=== PATIENT | female | born 1960 | race Caucasian/White ===

== ENCOUNTER 2016-06-14 15:47 | Emergency (ER) | payer OTHER ==
[~2016-06-14] VITALS: Ht 162.6 cm; Wt 100.0 kg
[2016-06-14 15:58] VITALS: BP 148/83; PULSE 103; RESP 18; O2SAT 87
[2016-06-14 17:19] LABS: BASOPHILS % (AUTO) 0.4 % (0-3); EOSINOPHILS % (AUTO) 2.2 % (0-5); Mean Corpuscular Volume 100.9 fL (81-100); NEUTROPHILS % (AUTO) 66.4 % (40-74); Platelet Count 347 bil/L (150-400)
[2016-06-14 17:28] VITALS: BP_SYST 119; BP_SYST 153; BP_DIAS 68; BP_DIAS 78; PULSE 64; PULSE 67; RESP 20; O2SAT 97; O2SAT 98
[2016-06-14 17:51] LABS: TROPONIN T < 0.010 ug/L (0.0-0.011)
--- NOTE | 2016-06-14 18:07 | DRSVH ---
PROCEDURE: X-RAY CHEST ONE VIEW, PORTABLE ([id number]) INDICATIONS: dyspnea TECHNIQUE: One view of the chest was acquired. COMPARISON: [facility], , CHEST 2VW, 06/09/2014, 14:12. FINDINGS: Surgical changes and devices: None. Lungs and pleura: No pleural effusions or pneumothorax. There is mild appearance of coarsened, bibas ilar interstitium, left greater than right. Mediastinum: Mediastinal contours appear normal. Heart size is normal. Bones and chest wall: No suspicious bony lesions. Overlying soft tissues appear unremarkable. IMPRESSION: Mild appearance of coarse and IVs were interstitium as above. This could represent develo ping airspace disease such as pneumonia. Dictated by: Hoa Zapien M.D. on 06/14/2016 at 18:05 Approved by: Hoa Zapien M.D. on 06/14/2016 at 18:06
--- NOTE | 2016-06-14 18:51 | ED.REPORT ---
HPI-URI / Cough / Cold Date of Service Jun 14, 2016 ED Provider: John Lou MD History of Present Illness: Sent from Urgent Care This is a 56 year old female with a history of asthma who is an every-day smoker presenting to the emergency department from urgent care complaining of cough that began one week ago. Associated symptoms include dyspnea, sinus pressure, chills, and wheezing. She denies abdominal pain, nausea, vomiting, diarrhea, constipation, dysuria, change LOC, dizziness or lightheadedness at this time. Pt was hypoxic on room air at urgent care and consequently sent to the ED. Nursing Notes Stated Complaint: COLD SYPMTOMS, SENT FROM URGENT CARE Chief Complaint: FLU/Cold Symptoms Nursing Notes Reviewed: Yes ([employer]!, [employer] not reconciled) Allergies: Coded Allergies: No Known Allergies (Verified , 06/14/16) Scheduled Azithromycin (Zithromax) 250 Mg Tablet 250 MG PO DAILY Take 250mg once a day starting Thursday 06/15 for four more days to complete a 5 day course Prednisone (PredniSONE) 20 Mg Tablet 60 MG PO DAILY Scheduled PRN Albuterol HFA (Proair HFA) 8.5 Gm Hfa.aer.ad 2 PUFFS INHALATION Q4H PRN PRN For Shortness of Breath General Time Seen by MD: 18:50 Chief Complaint Other Hx Obtained From: Patient Arrived By: Walk-in Onset Occurred: Yesterday Symptom Duration: Since onset Severity: Current: No pain currently Pertinent Negative: Pt denies other symptoms Recent Healthcare: No recent doctor visit, No recent hospitalization Similar Sx Previous: No Past Medical History Past Medical History Notes: Asked ED visit March 2014 for mild asthma exacerbation-no admissions, intubations, etc. 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 Ambulatory Status Independent Review of Systems Constitutional: Reports: Chills, Denies: Fever Respiratory: Reports: Non-productive cough, Shortness of breath GI: Denies: Abdominal pain, Constipation, Diarrhea, Nausea, Vomiting Neurologic: Reports: Headache Complete sys rev & neg: except as marked. Physical Exam Initial Vital Signs Vital Signs (First) Date Time Temp Pulse Resp B/P Pulse Ox O2 Delivery O2 Flow Rate FiO2 06/14/16 15:58 37.4 103 18 148/83 87 Room Air 06/14/16 17:28 3 Initial VS: Reviewed, Vital signs abnormal (hypoxia) Head / Eyes: Atraumatic, Normocephalic, PERRL Neck: Supple, Non-tender, Full range of motion Cardiovascular: Regular rate & rhythm, Heart sounds normal, Intact distal pulses Abdomen / GI: Soft, Non-tender, No guarding, No rebound, No distention Extremities: Vascular intact, Neuro intact, No swelling, No tenderness Skin: Warm, Dry, No cyanosis Neurologic: Alert, Oriented, Nonfocal Psychiatric: Mood/affect normal, Behavior normal, Normal thought content General/Constitutional: Awake, Alert ENT: Airway patent, Mucous membranes moist, Pharynx NL, Tympanic membs NL, Ext aud canal NL, Nose exam NL, No sinus tenderness Respiratory / Chest: No respiratory distress, No rhonchi Wheezing / Retractions: Positive: Wheeze insp/exp diffuse Interpretation & Diagnostics Lab Results Interpretation Result Diagram: 06/14/165 06/14/16 1655 Test 06/14/16 16:55 White Blood Count 13.6th/mm3 (3.8-10.1) Red Blood Count 4.46mil/mm3 (3.90-5.20) Hemoglobin 14.7g/dL (12.0-15.6) Hematocrit 45.0% (35.0-46.0) Mean Corpuscular Volume 100.9fL (81-100) Mean Corpuscular Hemoglobin 33.0pg (27.0-35.0) Mean Corpuscular Hemoglobin Concent 32.7% (32.0-37.0) Red Cell Distribution Width 13.3% (12.3-15.4) Platelet Count 347bil/L (150-400) Neutrophils (%) (Auto) 66.4% (40-74) Lymphocytes (%) (Auto) 22.6% (14-46) Monocytes (%) (Auto) 8.0% (4-12) Eosinophils (%) (Auto) 2.2% (0-5) Basophils (%) (Auto) 0.4% (0-3) Sodium Level 141mEq/L (134-144) Potassium Level 4.3mEq/L (3.5-5.2) Chloride Level 98mEq/L (97-108) Carbon Dioxide Level 29mmol/L (18-29) Blood Urea Nitrogen 13mg/dL (6-24) Creatinine 0.64mg/dL (0.57-1.00) Estimat Glomerular Filtration Rate 139mL/min (>59) Glucose Level 93mg/dL (60-99) Calcium Level 9.5mg/dL (8.5-10.1) Total Bilirubin 0.2mg/dL (0.0-1.2) Aspartate Amino Transf (AST/SGOT) 17U/L (0-50) Alanine Aminotransferase (ALT/SGPT) 14U/L (0-32) Alkaline Phosphatase 96U/L (25-150) Troponin T < 0.010ug/L (0.0-0.011) Pro-B-Type Natriuretic Peptide 85.96pg/mL (0-249) Total Protein 8.1g/dL (6.4-8.4) Albumin 4.3g/dL (3.4-5.0) Hold Sims Top Tube Received (Received) Lab Results Interpretation: CBC mild leukocytosis CMP normal Troponin negative ECG Interpretation ECG Interpretation: NSR at a rate of 67 No ischemic or arrhythmic changes identified Time: 19:18 Interpreted by: ED physician Normal ECG Interpretation: Normal rate, Normal sinus rhythm, No acute ischemic changes, Normal QRS, Normal axis, Normal intervals, No change from prior ECGs, Adequate tracing X-Ray Chest Interpretation Chest Xray Interpretation: IMPRESSION: Mild appearance of coarse and IVs were interstitium as above. This could represent developing airspace disease such as pneumonia. Dictated by: Hoa Zapien M.D. on 06/14/2016 at 18:05 Approved by: Hoa Zapien M.D. on 06/14/2016 at 18:06 Re-Eval/Medical Decision Med Decision/Clinical Course This is a 56-year-old female smoker with mild asthma he has had URI sinus symptoms over the past week presented to urgent care, received a nebulizer treatment there was noted to desaturate down to 82%. She declined EMS transfer , and drove herslef POV to the ED for reevaluation. She did briefly require 3 L nasal cannula to maintain O2 sats, and had mild bronchospasm-when I go to see her she states she feels the best she has felt in the past week, and she demands to leave the department to go home. She still has mild bronchospasm, but again is not in visible distress, and states she feels the best so far. Her blood work is notable for mild leukocytosis, a amarjit infiltrate is not evident on chest x-ray-but given the circumstances the patient's being covered empirically with azithromycin which he resuscitate. She was willing to stay to receive some parenteral starting dose of steroids, and is willing to be discharged on a course of prednisone. Additionally I have provided instructions on how to use a spacer, she has not been using a spacer with her an inhaler. I have also written a refill for her inhaler. When talking she does not appear visibly dyspneic,but she does briefly desat down into 88, 87% when resting (so again the desaturations or current rest, and she is actually up, conversing-her sats improved), although when talking, her sats improved into the low 90s. She is also's counseled on smoking cessation. I have offered keeping her in the hospital for continued management and observation given the hypoxia, but the patient adamantly declines this. She has intact decisional capacity, she does not feel that she needs to be in the hospital or secondary to be in the hospital, and he clinically overtly she appears okay. She does have BiPAP support for use at night. She is not in distress. I have indicated if she changes her mind or for if symptoms worsen she is strongly recommended to return to the emergency department, shireen agrees to do so. I recommended close follow-up with [facility] residency clinic, and I have attempted to contact an on-call provider for the [facility] to facilitate follow-up, but have been told repeatedly now that no one is on-call at this time. Patient is discharged in stable condition. Source of Hx: Old records Differential Diagnosis: Positive: Asthma exacerbation, Upper resp infection, Negative: Pertussis, Pharyngitis, viral, Pneumonia, Rhinitis, nonallergic, Seasonal allergy Counseled Regarding: Diagnosis, Lab results, Need for follow-up Discharge & Departure Departure Notes Patient declines admission Impression: Primary Impression: Asthma exacerbation Additional Impressions: Hypoxia Respiratory infection Disposition: Home Discharge Condition All VS Reviewed: Yes Condition: Stable Additional Instructions: 1. Use your albuterol inhaler every 4 hours as needed. Use the spacer with the inhaler. 2. Take the steroid medication prednisone 60mg (three 20mg tabs) once a day for 5 days starting tomorrow (you received a dose in the IV today) 3. Take the antibiotic azithromycin 250mg once a day for four more days 4. Work on stopping smoking. 5. No pneumonia was appreciated on your chest x-ray 6. Were sent to the emergency department your oxygen levels became quite low at urgent care, which can sometimes happen after a nebulized treatment opens up parts of the lung which were not getting flow beforehand. But your oxygen levels here have improved - although they remain on the low side and I have offered to admit you to the hospital which you have declined. If you change your mind or have worsening symptoms, return to the Emergency Department. 7. Rest 8. Drink plenty of fluids 9. Return if new or worsening symptoms. Referrals: [facility] Residency Clinic (PCP) Scribe Attestation Portions of this note were transcribed by Zhang Skinner. I, Dr. Lou personally performed the history, physical exam and medical decision-making; I reviewed and confirmed the accuracy of the information in the transcribed note. Signed by: dorie Greer. 06/14/2016, 03:00. John Lou MD Jun 14, 2016 18:51 ZHANG SKINNER Jun 14, 2016 18:56
[2016-06-14] MEDS ORDERED: MethylprednisoLONE Sodium Succinate 62.5 mg/mL 2 mL Inj IVPUSH ONE (19:05)
[2016-06-14] MEDS ORDERED: ZIT250 PO (19:10)
[2016-06-14] MEDS ORDERED: PRE20 PO (19:10)
[2016-06-14] MEDS ORDERED: ALBU8.5H2 INHALATION (19:15)
[2016-06-14] MEDS ORDERED: Albuterol HFA 60 Puff 8 Gm Inhaler INHALATION ONE (19:20)
[2016-06-14 19:43] VITALS: BP 142/80; PULSE 87; RESP 20; O2SAT 87
== END 2016-06-14 19:44 | disposition home or self-care (01) ==
LOC: SED 15:47
DX: J44.1 Chronic obstructive pulmonary disease with (acute) exacerbation (principal); J98.8 Other specified respiratory disorders; R09.02 Hypoxemia; I10 Essential (primary) hypertension; E11.9 Type 2 diabetes mellitus without complications; E03.9 Hypothyroidism, unspecified; G47.30 Sleep apnea, unspecified; F17.200 Nicotine dependence, unspecified, uncomplicated
CPT/HCPCS: 36415; 71010; 80053; 83880; 84484; 85025; 93005; 94640; 96374; 99285; J2930

== ENCOUNTER 2016-06-15 16:02 | Emergency (ER) | payer OTHER ==
[~2016-06-15 16:02] MED LIST: ALBU8.5H2 INHALATION; PRE20 PO; ZIT250 PO
== END 2016-06-15 16:10 | disposition left against medical advice (07) ==
LOC: SED 16:02
DX: J00 Acute nasopharyngitis [common cold] (principal); Z53.21 Procedure and treatment not carried out due to patient leaving prior to being seen by health care provider